=== PATIENT | female | born 1965 | race Two or more races ===

== ENCOUNTER 2020-07-19 09:02 | Outpatient (CLI) | payer OTHER | END 2020-07-19 09:07 | disposition home or self-care (01) | LOC: SONOGRAMA 09:02 | PROVIDERS: ATTEND Pathology Anatomic Pathology & Clinical Pathology | DX: E04.2 Nontoxic multinodular goiter (principal); E07.89 Other specified disorders of thyroid ==

== ENCOUNTER 2020-12-20 08:03 | Outpatient (CLI) | payer OTHER | END 2020-12-20 08:21 | disposition home or self-care (01) | LOC: SONOGRAMA 08:03 | PROVIDERS: ATTEND Pathology Anatomic Pathology & Clinical Pathology | DX: E07.89 Other specified disorders of thyroid (principal) ==

== ENCOUNTER 2022-05-08 08:25 | Outpatient (CLI) | payer OTHER | END 2022-05-08 08:27 | disposition home or self-care (01) | LOC: SONOGRAMA 08:25 | PROVIDERS: ATTEND Pathology Anatomic Pathology | DX: D34 Benign neoplasm of thyroid gland (principal); E06.3 Autoimmune thyroiditis; E04.2 Nontoxic multinodular goiter ==